=== PATIENT | male | born 1955 | race Caucasian/White ===

== ENCOUNTER → 2017-01-14 | Day surgery (SDC) | payer BC ==
[2016-12-29 11:50] VITALS: Ht 182.9 cm; Wt 90.9 kg
[2017-01-05 13:07] LABS: BASO % 0.3 %; BASO ABS # 0.03 K/uL (0-0.2); COMPLETE YES; EOS % 0.6 %; HEMATOCRIT 40.1 % (42-52); IG% 0.3 %; LYMPH % 16.9 %; LYMPH ABS # 1.54 K/uL (1.2-3.4); MEAN CELL VOLUME 94.4 fL (80-100); MEAN CORPUSCULAR HEMOGLOBIN 32.2 pg (25-34); MEAN CORPUSCULAR HGB CONC 34.2 g/dl (32-36); MEAN PLATELET VOLUME 9.1 fL (7.4-10.4); NEUT % 72.9 %; PLATELET COUNT 276 K/uL (130-400); RED BLOOD COUNT 4.25 M/uL (4.7-6.1); WHITE BLOOD COUNT 9.09 K/uL (4.8-10.8)
[2017-01-05 13:32] LABS: BUN/CREATININE RATIO 7.4 (10-20); CALCIUM 8.2 mg/dl (8.5-10.1); CREATININE 0.88 mg/dl (0.60-1.40); POTASSIUM 3.9 mmol/L (3.5-5.1)
[~2017-01-14] VITALS: Ht 182.9 cm; Wt 90.9 kg
[~2017-01-14] MED LIST: BUPIVACAINE/EPINEPHRINE 0.5% MPF 1:200,000 10 ML VIAL ONE; CEFAZOLIN 2000 MG/60 ML D5W IV SCH; CITA40TA12 PO; DEXAMETHASONE SOD INJ 4 MG/ML VIAL ONE; FENTANYL CITRATE INJ 50 MCG/1 ML 2 ML VIAL IV PRN; FENTANYL CITRATE INJ 50 MCG/1 ML 2 ML VIAL ONE; HYDR-5688 PO; HYDROCODONE/ACETAMOPHEN 5/325MG TAB PO PRN; KETOROLAC TROMETHAMINE 30 MG/ML VIAL IV. PRN; LACTATED RINGER'S 1000ML 1,000 ML IV PRN; LACTATED RINGER'S 1000ML 1,000 ML IV SCH; LIDOCAINE HCL 2% 2 ML VIAL (20MG/ML) ONE; MIDAZOLAM HCL 1 MG/ML 2ML VIAL ONE; ONDANSETRON INJ 2 MG/ML 2 ML VIAL IV PRN; ONDANSETRON INJ 2 MG/ML 2 ML VIAL ONE; PROPOFOL IV EMULSION 10 MG/ML 20 ML VIAL IV ONE; RISP0.5T3 PO; SODIUM CHLORIDE 0.9% 1000ML 1,000 ML IV SCH
--- NOTE | 2017-01-14 06:53 | History & Physical Bridge Note ---
H&P Re-Evaluation Bridge Note: I have examined the patient, reviewed the History & Physical and in the interval since the performance of the History & Physical I have noted the following changes of clinical significance: No changes noted
--- NOTE | 2017-01-14 07:58 | [facility] Operative Report ---
Operative Report Operative Date Jan 14, 2017. Pre-Operative Diagnosis Umbilical Hernia Post-Operative Diagnosis umbilical hernia Procedure(s) Performed open umbilical hernia repair. no mesh. Surgeon Dr. Romano Pharmacy Manager Surgeon(s) Bob Fields PA-C Estimated Blood Loss 5 ml Findings 1 cm umbilical hernia with omental incarceration. Specimens None Anesthesia LMA Disposition Recovery Room / PACU I attest to the content of the Intraoperative Record and any orders documented therein. Any exceptions are noted below.
--- NOTE | 2017-01-14 08:08 | Discharge Instructions-SurgCtr ---
Discharge Instructions Date of Service Jan 14, 2017. Visit Reason for Visit: Umbilical Hernia Discharge Discharge Diagnosis / Problem: Umbilical Hernia Discharge Goals Goal(s): Decrease discomfort, Improve function Activity Recommendations Activity Limitations: as noted below Lifting Limitations: no more than 10 pounds Exercise/Sports Limitations: until after follow-up appointment May Resume Sexual Activity: after follow-up appointment Shower/Bathe: tomorrow Anesthesia . Post Anesthesia Instructions: If you have had General Anesthesia or IV Sedation: * Do not drive today. * Resume driving when surgeon permits. * Do not make important decisions or sign legal documents today. * Call surgeon for: 1. Temperature elevations greater than 101 degrees F. 2. Uncontrollable pain. 3. Excessive bleeding. 4. Persistent nausea and vomiting. 5. Medication intolerance (nausea, vomiting or rash). * For nausea and vomiting use only clear liquids such as: tea, soda, bouillon until nausea subsides, then gradually increase diet as tolerated. * If you have any concerns or questions, call your surgeon's office. If physician is unavailable and it is an emergency, call 911 or go to the nearest emergency room. . Instructions / Follow-Up Instructions / Follow-Up Please follow-up with Dr. Romano in the office in 1-2 weeks. Please call the office at [phone] to make an appointment if you do not have one already. Our office is located at [address] [place] [address], [place] [address]. Please call our office at [phone] with any questions or concerns. Diet Recommendations Home Diet: no limitations, resume previous diet Procedures Procedures Performed: Umbilical Hernia Open Repair Pending Studies Studies pending at discharge: no Medical Emergencies . Who to Call and When: Medical Emergencies: If at any time you feel your situation is an emergency, please call 911 immediately. . Non-Emergent Contact Non-Emergency issues call your: Primary Care Provider, Surgeon Call Non-Emergent contact if: temperature is above 101.5, your pain is not controlled, wound has increased drainage, wound has increased redness . . "Provider Documentation" section prepared by Carolyn Fields. . [place] Drug Monitoring Program Search Results: patient reviewed within database, no issues identified
--- NOTE | 2017-01-14 08:24 | OPERATIVE REPORT ---
DATE OF OPERATION: 01/14/2017 PREOPERATIVE DIAGNOSIS: Symptomatic umbilical hernia. POSTOPERATIVE DIAGNOSIS: Umbilical hernia with omental incarceration. PROCEDURE: Open umbilical hernia repair without mesh. SURGEON: Dr. Romano. INFORMATION TECHNOLOGY TEACHER: Carolyn Fields PA-C. ESTIMATED BLOOD LOSS: Approximately 5 mL. COMPLICATIONS: No immediate. ANESTHESIA: General with laryngeal mask airway. OPERATION AND FINDINGS: OPERATIVE NOTE: After informed consent was obtained, the patient was taken to the operating suite and placed in supine position. After successful placement of laryngeal mask airway the abdomen was shaved and sterilely prepped and draped in usual fashion. Curvilinear infraumbilical incision was made with 15 blade scalpel and carried down through the soft tissue using electrocautery. We used a Nicole clamp to come around the umbilicus and took down the umbilical stalk with electrocautery. This revealed about 1 cm or so umbilical hernia with some omental incarceration. We were able to free up this omentum and dunk it back into the abdominal cavity, leaving a very discrete defect. Because of the small size, I opted to not use mesh. There were no adhesions to the undersurface so I simply took a 0 Ethibond suture and used interrupted [id number] sutures to close the defect primarily. The umbilical stalk was then reattached to the fascia using 0 Vicryl. The wound was thoroughly irrigated and closed using 3-0 Vicryl and 4-0 Monocryl for the skin. Marcaine was injected around the area for postoperative analgesia and skin glue used as a dressing. The patient was awakened, extubated, and transferred to recovery in stable condition. I attest to the content of the Intraoperative Record and any orders documented therein. Any exception s are noted below.
--- NOTE | 2017-01-14 08:27 | Anesthesia Progress Nt - [facility] ---
Anesthesia Post Op Note Date & Time Jan 14, 2017 at 08:27 Vital Signs Pain Intensity: 0 Vital Signs Past 12 Hours Date Time Temp Pulse Resp B/P (MAP) Pulse Ox O2 Delivery O2 Flow Rate FiO2 01/14/17 08:20 110/78 01/14/17 08:19 76 14 95 01/14/17 08:19 74 14 01/14/17 08:15 106/76 01/14/17 08:14 69 13 109/77 100 01/14/17 08:14 70 13 01/14/17 08:09 75 17 01/14/17 08:09 77 17 99 01/14/17 08:08 74 7 100 01/14/17 08:08 74 7 01/14/17 08:05 76 16 113/74 96 Mask 8 01/14/17 08:04 37.0 77 16 115/80 96 Mask 8 01/14/17 06:36 36.8 69 18 112/75 (87) 95 Room Air Notes Mental Status: alert / awake / arousable, participated in evaluation Pt Amnestic to Procedure: Yes Nausea / Vomiting: adequately controlled Pain: adequately controlled Airway Patency, RR, SpO2: stable & adequate BP & HR: stable & adequate Hydration State: stable & adequate Anesthetic Complications: no major complications apparent Pt doing well.
[2017-01-14 08:31] VITALS: TEMP 36.9
[2017-01-14 08:55] VITALS: BP 117/76; PULSE 60; O2SAT 96
== END | disposition home or self-care (01) ==
LOC: X.SURG 06:17
PROVIDERS: ATTEND Surgery
DX: K42.0 Umbilical hernia with obstruction, without gangrene (principal); K57.90 Diverticulosis of intestine, part unspecified, without perforation or abscess without bleeding; H91.90 Unspecified hearing loss, unspecified ear; F43.10 Post-traumatic stress disorder, unspecified; C83.30 Diffuse large B-cell lymphoma, unspecified site; Z80.3 Family history of malignant neoplasm of breast; Z82.3 Family history of stroke; Z87.891 Personal history of nicotine dependence

== ENCOUNTER 2023-09-27 05:03 | Observation (INO) ==
--- NOTE | 2023-09-22 10:48 | Anesthesiology Consultation ---
Date of Service September 22, 2023 Assessment & Plan (1) Encounter for pre-operative examination: - Infectious disease screening: Per assessment on 09/16/23: Did have previous fever which resolved per PAT RN interview. Patient currently has ongoing infection (reason for upcoming surgery). No current infectious disease symptoms. No noted recent Covid positive test result. At anesthesiologist discretion DOS if further testing needed preoperatively. - Infectious disease note (08/18/23): "Yes" medically cleared for surgery. " Cleared for surgery from ID perspective.. Please send intraop deep tissue/bone AFB cultures if possible." Chart Review Chart Review: Acceptable Risk for Surgery and Patient NOT seen in Pre Admission Testing History Surgery Operation Date: 09/27/23 07:00 Proposed Procedures p Right Elbow Incision and Drainage Olecranon Bursisit - Chetan Mello MD Height/Weight Height: 6 ft Weight: 78.018 kg Allergies Allergy/AdvReac Type Severity Reaction Status Date / Time No Known Drug Allergies Allergy Unknown Verified 09/22/23 10:41 Medications Home Medications Medication Instructions Recorded Confirmed Last Taken escitalopram oxalate 20 mg tablet 30 mg PO QAM 11/06/20 09/16/23 11/14/20 05:30 allopurinol 100 mg tablet 100 mg PO QAM 09/16/23 09/16/23 Unknown azithromycin 500 mg tablet 500 mg PO QAM 09/16/23 09/16/23 Unknown ethambutol 400 mg tablet 400 mg PO QAM 09/16/23 09/16/23 Unknown rifampin 300 mg capsule 600 mg PO QAM 09/16/23 09/16/23 Unknown Past Medical History Medical History Anxiety Infection Right elbow, "slow growth bacterium", on current abx Follows with ID (Dr. Bird, [facility]) Non-Hodgkin lymphoma (~2005) Hx chemo, currently "in remission" Past Surgical History Surgical History H/O detached retina repair (2006) History of colonoscopy History of prostate surgery (2020) no cancer, just laser treatment, PSH Hx of bilateral cataract extraction Hx of elbow surgery (11/17/20) right side, bursa sac drainage, Dr. Mello > slow growth bacterium Hx of umbilical hernia repair Social History Smoking Status: Former smoker Smoking cigarettes per day: 2 PPD Do You Dip or Chew Tobacco: No Smoking End Date: Quit 2005 Hx Alcohol Use: No Hx Substance Use: No substance use type: does not use Substance Use Type Other:: medical marijuana card> tinture > few times per week Lab Results Anesthesia Preop Results Results Anesthesia Widget: WBC 5.30 K/ul (4.8-10.8) 09/21/23 Hgb 13.7 g/dl (14.0-18.0) L 09/21/23 Hct 42.2 % (42.0-52.0) 09/21/23 Plt 266 K/uL (130-400) 09/21/23 Na 139 mmol/L (136-145) 09/21/23 K 4.0 mmol/L (3.5-5.1) 09/21/23 Cl 104 mmol/L (98-107) 09/21/23 CO2 30 mmol/L (21-32) 09/21/23 BUN 8 mg/dl (6-23) 09/21/23 Creat 1.37 mg/dl (0.6-1.4) 09/21/23 Glucose Level 78 mg/dl (70-99(Fasting)) 09/21/23 Testing Electrocardiogram Date: 08/01/23 NSR at 64bpm. "Normal ECG"
[2023-09-27] MEDS: LR 15ML/HR IV SCH (05:45)
[2023-09-27] MEDS ORDERED: MIDAZOLAM HCL 1 MG/ML 2ML VIAL ONE (06:35)
[2023-09-27] MEDS ORDERED: fentaNYL citrate PF 100 MCG/2 ML VIAL ONE ×2 (06:35→07:42)
[2023-09-27] MEDS ORDERED: ONDANSETRON INJ 2 MG/ML 2 ML VIAL ONE (06:37)
[2023-09-27] MEDS ORDERED: LIDOCAINE 2% 2 ML VIAL/AMP(20MG/ML) INFIL ONE (06:37)
[2023-09-27] MEDS ORDERED: PROPOFOL IV EMULSION 10 MG/ML 20 ML VIAL IV ONE (06:37)
--- NOTE | 2023-09-27 06:40 | History & Physical Bridge Note ---
Date of Service September 27, 2023 History & Physical Bridge Note I have examined the patient, reviewed the History & Physical and in the interval since the performance of the History & Physical I have noted the following changes of clinical significance: no changes noted
[2023-09-27] MEDS ORDERED: ONDANSETRON INJ 2 MG/ML 2 ML VIAL IV PRN ×2 (06:46→09:25)
[2023-09-27] MEDS ORDERED: ATROPINE SULFATE 0.1 MG/ML 10ML SYR IV PRN (06:46)
[2023-09-27] MEDS ORDERED: ePHEDrine sulfate 50 MG/ML AMP IV PRN (06:46)
[2023-09-27] MEDS ORDERED: PROMETHAZINE HCL 6.25 MG in SODIUM CHLORIDE 0.9% 50 ML IV PRN (06:46)
[2023-09-27] MEDS: ceFAZolin 2000MG 2,000 MG/15 ML SYR IV SCH (06:57)
[2023-09-27] MEDS ORDERED: ePHEDrine sulfate 50 MG/ML AMP ONE (07:20)
[2023-09-27] MEDS: BUPIVACAINE 0.5 % 5 MG/1 ML MPF 30ML VIAL ONE (07:29)
[2023-09-27] MEDS ORDERED: DEXAMETHASONE SOD INJ 4 MG/ML VIAL ONE (07:34)
[2023-09-27] MEDS: LIDOCAINE 1%/EPINEPHRINE 1:100,000 20 ML VIAL ONE (08:48)
--- NOTE | 2023-09-27 08:56 | Post Operative Brief Note ---
Immediate Post Op Note v1 Date of Surgery September 27, 2023 Pre & Post Diagnosis Operation Date: 09/27/23 07:00 Pre-Op Diagnosis: Infected Olecranon Bursitis, Right elbow Post-Op Diagnosis: Infected Olecranon Bursitis, Right elbow I identified the patient and participated in the time-out.: Yes Procedure Operation Date: 09/27/23 07:00 Actual Procedures p Right Elbow Incision and Drainage Olecranon Bursitis(Right) - Chetan Mello MD Surgeon Chetan Mello MD Auto Clocks Repairer Tom Rosas PA-C (No fellow avail) Estimated Blood Loss 12 Findings Consistent with Post-Op Diagnosis Fluids 1000 cc Specimens R Olecranon bursa gram stain, C&S x 2 R Olecranon bursa pathology R Olecranon bursa specimen for Micro R Olecranon bursa C&S for AFB R Olecranon bursa specimen for AFB Drains Hemovac Drain Anesthesia Type General Complications none
--- NOTE | 2023-09-27 08:58 | Operative Report ---
Post Operative Report Pre & Post Diagnosis Operation Date: 09/27/23 07:00 Pre-Op Diagnosis: Infected Olecranon Bursitis, Right elbow Post-Op Diagnosis: Infected Olecranon Bursitis, Right elbow I identified the patient and participated in the time-out.: Yes Procedure Operation Date: 09/27/23 07:00 Actual Procedures p Right Elbow Incision and Drainage Olecranon Bursitis(Right) - Chetan Mello MD Surgeon Chetan Mello MD Pharmacovigilance Scientist Tom Rosas PA-C (No fellow avail) Estimated Blood Loss 12 Findings See Below Large Olecranon bursae with scar tissue, clear fluid filled with soft tissue floaters. No obvious purulence. Fluids 1000 cc Specimens R Olecranon bursa gram stain, C&S x2 + AFB, surgical path, and specimen for Micro + AFB Drains HVAC Anesthesia Type General Complications none Indications The patient is a 68 year old male who previously underwent I&D of his right olecranon bursa 11/14/2020. This subsequently infected with M Kanasanii and failed to improve with aspiration and antibiotic treatment. The patient understands the risks of surgery, which include but are not limited to: bleeding, infection, re-operation, damage to nerves and arteries, continued pain and stiffness. The patient understands all of these instructions and explanations, all of their questions have been satisfactorily addressed. The patient has elected to proceed with surgery and the informed consent was signed. Description of Procedure The patient was taken to the Operating Room and placed in the supine position on the operating table. After adequate sedation was administered a multidisciplinary time-out was performed identifying my initials on the right upper limb as the correct and operative limb. 2 grams of Ancef were to be held until after cultures, unfortunately they were given prior to the incision. The patient has been continuing with his oral antibiotic regime as well. The right arm was prepped and draped in the standard orthopaedic sterile fashion. Using the previous posterior incision curves lateral around the tip of the patients olecranon was marked and extended approximately 1 cm both proximally and distally. The incision was injected with a 50:50 mixture of 1% Lidocaine plain and 0.5% Marcaine with epinephrine for a total of 10 cc. The incision was carried down to the bursa. The bursal mass was carefully excised in mostly a single unit. Once the bursal sac was entered, cultures were obtained. Some of the soft floaters and a portion of the bursal sac were removed for micro & AFB testing. The rest of the sac the size of a small orange was removed and sent to pathology for specimen. The skin, fascia, and olecranon tip were debrided with sharp dissection, rongeur, and Versajet removing any fibrinous material. The wound was copiously irrigated with over 6 L normal saline. The remaining soft tissue was well appearing health soft tissue. A Hemovac drain was placed. The skin was closed with 2-0 & 3-0 Prolene using vertical and horizontal mattress sutures. The incision was covered with Xeroform, 4x4's, ABD, sterile cast padding, and an DONTE. A sling was placed for comfort. The sponge and needle counts were correct. POST-OP INSTRUCTIONS: The patient will use pain medicine as needed. Sling for comfort. No heavy lifting. The patient will be admitted, labs checked as well as HVAC drainage. If drainage plan 50 cc overnight, drain may be removed. Will contact [facility] to determine if any changes need to be made to his antibiotics. He will follow- up in the office in 1 week. I attest to the content of the Intraoperative Record and any orders documented therein. Any exceptions are noted below.
[2023-09-27] MEDS: fentaNYL citrate PF 100 MCG/2 ML VIAL IV PRN (09:17)
--- NOTE | 2023-09-27 09:22 | Operative Report ---
Post Operative Report Pre & Post Diagnosis Operation Date: 09/27/23 07:00 Pre-Op Diagnosis: Infected Olecranon Bursitis, Right elbow Post-Op Diagnosis: Infected Olecranon Bursitis, Right elbow I identified the patient and participated in the time-out.: Yes Procedure Operation Date: 09/27/23 07:00 Actual Procedures p Right Elbow Incision and Drainage Olecranon Bursitis(Right) - Chetan Mello MD Surgeon Chetan Mello MD Process Improvement Specialist Tom Rosas PA-C (No fellow avail) Estimated Blood Loss 12 Findings Consistent with Post-Op Diagnosis Specimens olecranon bursa and fluid Drains hemovac Complications none Description of Procedure I was present during the entire case. I assisted with transfer, draping, retracting, wound closure, and dressing application. Patient left the OR in stable condition. Please refer to Dr. Mello's operative report for complete details. I attest to the content of the Intraoperative Record and any orders documented therein. Any exceptions are noted below.
[2023-09-27] MEDS ORDERED: diphenhydrAMINE Capsule 25 MG CAP PO PRN (09:25)
[2023-09-27] MEDS ORDERED: METOCLOPRAMIDE HCL INJ 5 MG/ML 2 ML VIAL IV PRN (09:25)
[2023-09-27] MEDS ORDERED: NALOXONE HCL 0.4 MG/1 ML VIAL/CARP IV PRN (09:25)
[2023-09-27] MEDS ORDERED: MAGNESIUM HYDROXIDE SUSP 30 ML UDC PO PRN (09:25)
[2023-09-27] MEDS ORDERED: bisacodyL 10 MG SUPP PR PRN (09:25)
--- OUTSIDE RECORDS SUMMARY | 2023-09-27 09:33 | External Medical Summary | Continuity of Care Document ---
Author Name Unknown Organization [id number] Address [address] [place] [id number] Care Team Providers Care Deli Clerk Name Role Phone Rashi Maciel Primary Care Physician [phone] Encounter [facility] [id number] Date(s): 09/21/23 - 09/21/23 [facility] [address] [id number] [facility] [address] [place] [id number] Encounter Diagnosis Pre-op exam(Discharge Diagnosis) - 09/21/23 Discharge Disposition: Home or Self Care Attending Physician: MD Funmilayo, Chetan A Allergies, Adverse Reactions, Alerts No Known Allergies Immunizations Given and Recorded Vaccine Date Status Refusal Reason SARS-CoV-2 (COVID-19) mRNA-1273 vaccine 1 10/27/20 Recorded SARS-CoV-2 (COVID-19) mRNA-1273 vaccine 2 09/29/20 Recorded influenza virus vaccine, inactivated 04/04/19 Give n influenza virus vaccine, inactivated 04/24/14 Give n influenza virus vaccine, inactivated 09/06/13 Give n tetanus/diphtheria/pertuss, acel (Tdap) 09/06/13 G luis 1Result Comment: 2021-01-07: Historical information-source unspecified 2Result Comment: 2021-01-07: Historical information-source unspecified Medications allopurinol 100 mg oral tablet TAKE 1 TABLET BY MOUTH EVERY DAY IN THE MORNING Start Date: 07/19/23 Status: Ordered azithromycin 500 mg oral tablet Start: 07/22/23 15:28:00 EST, 1 tab, PO, Daily, Disp# 28 tab, Refills: 1, Pharmacy: [facility] [id number] [facility] Start Date: 07/22/23 Stop Date: 09/16/23 Status: Ordered ethambutol 400 mg oral tablet Start: 07/22/23 15:24:00 EST, 1200, PO, Daily, Disp# 90 tab, Refills: 1, take three tablets once daily., Pharmacy: [facility] Start Date: 07/22/23 Stop Date: 09/20/23 Status: Ordered indomethacin 50 mg oral capsule TAKE 1 CAPSULE BY MOUTH 3 TIMES A DAY NEEDED FOR PAIN. WITH FOOD Start Date: 07/19/23 Status: Ordered Lexapro Start: 06/05/19 9:55:00 EST, See Instructions Start Date: 06/05/19 Status: Ordered LORazepam 0.5 mg oral tablet Start: 05/09/19 13:32:00 EDT, 1 tab, PO, Daily, PRN: as needed for anxiety Start Date: 05/09/19 Status: Ordered Prevnar 13 intramuscular suspension Start: 01/08/21 13:44:00 EDT, 0.5 mL, IM, ONCE, Disp# 0.5 mL, Pharmacy: [id number] Start Date: 01/08/21 Status: Ordered rifAMPin 300 mg oral capsule Start: 07/22/23 15:27:00 EST, 2 cap, PO, Daily, Disp# 60 cap, Refills: 1, Pharmacy: [facility] [id number] [facility] Start Date: 07/22/23 Stop Date: 09/20/23 Status: Ordered Shingrix intramuscular injection Start: 01/08/21 13:45:00 EDT, 0.5 mL, IM, ONCE, Disp# 1 each, Pharmacy: [facility] Start Date: 01/08/21 Status: Ordered Mental Status 09/21/23 Barriers to Learning one year None evide nt Mandatory Health Literacy Documentation Yes Health Literacy Communication Barriers N ever Primary Language Spanish Problem List Condition Confirmation Course Effective Dates Status H ealth Status Informant Diverticulosis of sigmoid colon Confirmed Active Hearing loss Confirmed Active Other hydronephrosis Confirmed Active Olecranon bursitis Confirmed Active Post traumatic stress disorder (PTSD) Confirmed Active Other retention of urine Confirmed Active S/P orthopedic surgery, follow-up exam Confirmed Active History of cigarette smoking 1 Confirmed Active Tobacco user Confirmed Active Weight disorder Confirmed Active 190 pack years Diagnosis Diagnosis Type Effective Dates Health Status Clini mark Service Informant Pre-op exam Discharge Diagnosis 09/21/23 Non-Specified Procedures Procedure Date Related Diagnosis Body Site Status History of elbow surgery 1 11/14/20 Completed Umbilical hernia 2 01/14/17 Comple anthony Colonoscopy 09/28/13 Completed Biopsy of lymph node Comp leted Cataracts, both eyes Comp leted Detached retina - R eye C ompleted 1right 2repair with omentl incarceration Vital Signs Most recent to oldest [Reference Range]: 1 Height 185 cm (09/21/23 2:59 PM) Patient Weight 80 kg (09/21/23 2:59 PM) Body Mass Index 23.37 kg/m2 (09/21/23 2:59 PM) Temperature [36.5-37.9 DegC] 36.6 DegC (09/21/23 2:59 PM) Heart Rate 78 bpm (09/21/23 2:59 PM) Blood Pressure 100/52mmHg (09/21/23 2:59 PM) Cuff Pulse Pressure 48 mmHg (09/21/23 2:59 PM) Social History Social History Type Response Tobacco Former smoker, Cigar ettes, 2 per day. 45 year(s). Started age 15 Years. Stopped age 50 Years. Smoking Status Never smoked cigaret stacie Sex Male History and physical note * ALAN Michel, Rachael: PERFORM Event Display: .HP Authored Date: [id number] Primary Care Provider MD Raheem, Rashi Santos Chief Complaint pre op R) elbow History of Present Illness Jeanne is a 68-year-old male here today for preoperative history and physical for right incision and drainage infected olecranon bursitis. He previously underwent right elbow olecranonbursectomy,11/12/2020. He did have repeat aspiration November 2020ofblood filledfluid and 40 cc of blood-tingedfluid was aspirated from the olecranon bursa on 06/13/2023 withpositiveAFB result. ID feltthat it was a contaminant and had a repeat aspiration on 07/05/2023. He was prescribed allopurinol, 400 mgethambutol 3 times daily, 300mgrifampin 2 pills a day,and Azithromycin [address] Casas. He is currently being followed by infectious disease. He states that nothing has changed with his elbow. He states that it is itchy at times and he knows that something is wrong. Hedoes not like taking the antibiotics and is eager to get off of those and have more answers after the surgery. He says thathe had a bad coldlast week and had a fever of 103. He feels fatiguedand he occasionally gets pain in his shoulders and hipsthat he feels is started since he started taking the antibiotics. He denies any previous history of heart attack, blood clots or stroke. He denies any current fevers or chills Preliminary fluid analysis from 07/05/2023 aspiration was negative for urate crystals and AFB, and all otherculturesto date Fluid analysis from 06/13/2023 aspiration revealed monosodium urate crystals consistent with gout concern for AFB positive aspirate The AFB culture from 08/09/23 was positive for the Microbacterium KANASASII [1] Review of Systems DeniesChest pain, heart palpitations; DeniesShortness of breath, cough; DeniesHeadache or blurry vision; DeniesAbdominal pain, nausea, vomiting, diarrhea, or urinary symptoms Physical Exam Vitals & Measurements T:36.6C HR:78(Monitored) BP:100/52 SpO2:96% HT:185cm WT:80.000kg(Dosing) WT:80kg BMI:23.37 General: Pt is well nourished, seated on the exam table AA&O, in NAD, calm and cooperative during exam HENT: Nontraumatic, no gross deformity, hearing and vision grossly in-tact, PERRL Heart: +S1, +S2, RRR, no murmurs appreciated Lungs: CTABL, no wheezing appreciated Focusing on the patient'sRightupper extremity (elbow): 2+ radial pulse Sensation to light touch is intact distally Motor to the median, radial, ulnar, AIN, and PIN, as well as musculocutaneous nerves are intact Full elbow ROM: 0-140flexion Large sized, soft fluid filled area over olecranon bursa,not warm, slightly boggy Skin intact, no sign of infection. Previous posterior incision is well healed with no evidence of infection. Size in unchanged [2] Diagnostic Results Refer to above for fluid analysis results Assessment/Plan Pre-op exam Infected olecranon bursitis The risks and benefits of surgery as well as the post operative course was explained and discussed with the patient. Written consent obtained. The patient's past medical history, surgeries, social history, medication list, allergies and PDMP were reviewed and confirmed with the patient. Geronimo ained medical clearance 09/15. He also was cleared by infectious disease. Infectious disease would like intraoperativedeep tissue/bone culturesto be sent off forAFB cultures. We will hold antibiotics until after we get the cultures in the OR. Patient will likely stay a couple days in the hospitalfor those results and for IV antibiotics. Infectious disease will continue to follow.. EKGwas done in July that showed normal sinus rhythm p. CBC and BMP orders were placed, willcontinue to follow. We discussed postoperative pain medications includingoxycodone, tylenol,as well as icing and elevating to control pain. Hisoxycodone will be prescribed at discharge from the hospital. DVT prophylaxis -ASA 81mg BID x 3 weeks, ANTHONY stockings x 2 weeks. Additional medications -stool softener as needed to prevent constipation while on narcotics. The patient has been scheduled for post operative appointments. The patient was given a preoperative booklet and we reviewed the most pertinent things leading up to the surgery and the day of surgery; including any assisted devices pt may need, when/who to call for the surgery time, where to arrive the day of surgery, NPO after midnight, medications to hold, prepping the skin with CHG to prevent infection etc. All oftheir questions and concerns were answered today. They were instructed to call our office if they have any further questions or concerns. Problem List/Past Medical History Ongoing Diffuse large B-cell lymphoma Diverticulosis of sigmoid colon Hearing loss History of cigarette smoking Olecranon bursitis Other hydronephrosis Other retention of urine Post traumatic stress disorder (PTSD) S/P orthopedic surgery, follow-up exam Tobacco user Weight disorder Historical Community acquired pneumonia Cough Nasal congestion Procedure/Surgical History History of elbow surgery (11/14/2020)Umbilical hernia (01/14/2017)Colonoscopy (09/28/2013)Detached retina - R eyeCataracts, both eyesBiopsy of lymph node Medications allopurinol(allopurinol 100 mg oral tablet) azithromycin(azithromycin 500 mg oral tablet), 500 mg= 1 tab, PO, Daily, 1 refills escitalopram(Lexapro), See Instructions ethambutol(ethambutol 400 mg oral tablet), 1200, PO, Daily, 1 refills indomethacin(indomethacin 50 mg oral capsule) LORazepam(LORazepam 0.5 mg oral tablet), 0.5 mg= 1 tab, PO, Daily, PRN pneumococcal 13-valent conjugate vaccine(Prevnar 13 intramuscular suspension), 0.5 mL, IM, ONCE rifAMPin(rifAMPin 300 mg oral capsule), 600 mg= 2 cap, PO, Daily, 1 refills zoster vaccine, inactivated(Shingrix intramuscular injection), 0.5 mL, IM, ONCE Allergies NKA Social History Smoking Status Never smoked cigarettes Alcohol - Denies Alcohol Use Tobacco - Low Risk Use:Former smoker Type:Cigarettes Tobacco use per day:2 Number of years:45 Started at age:15Years Stopped at age:50Years Family History Breast cancer: Mother. Stroke: Father. Health Status Family Member(s) Immunizations Vaccine Date Status SARS-CoV-2 (COVID-19) mRNA-1273 vaccine 10/27/2020 Recorded Comments : 2021-01-07: Historical information-source unspecified SARS-CoV-2 (COVID-19) mRNA-1273 vaccine 09/29/2020 Recorded Comments : 2021-01-07: Historical information-source unspecified influenza virus vaccine, inactivated 04/04/2019 Given influenza virus vaccine, inactivated 04/24/2014 Given influenza virus vaccine, inactivated 09/06/2013 Given tetanus/diphtheria/pertuss, acel (Tdap) 09/06/2013 Given Recommendations Health Maintenance Pending(in the next year) OverDue Medicare Annual Wellness Visit due01/08/22and every 1year Adult Influenza Vaccine due01/21/23and every 1year Due Adult COVID-19 Vaccination due09/21/23Unknown Frequency Adult Social Determinants of Health Screening due09/21/23Unknown Frequency Adult Tdap/Td Vaccine due09/21/23Unknown Frequency Hepatitis C Screening due09/21/23One-time only Pneumococcal Vaccine Older Adults due09/21/23One-time only Shingles Vaccine due09/21/23One-time only Due In Future Colorectal Cancer Screening not due until09/26/23and every 10year Lipid Screening not due until04/05/24and every Satisfied(in the past 1 year) Satisfied Body Mass Index on09/21/23.Satisfied by LUANN Rodriguez, Asia Mcdaniel [1]Chetan Mello; Angel Pittman 08/11/2023 09:32 EST [2]Chetan Mello; Angel Pittman 08/11/2023 09:32 EST Electronic Signature on File Electronically Reviewed/Signed by: Rachael Michel PA-C Author Signature Dt/Tm:09/21/2023 04:55 PM Physician Supervisor Special Effects, Dept. of [facility] - [address], [address] [place] [address] Electronically Reviewed/Signed by: Chetan Mello MD Cosigner Signature Dt/Tm: 09/22/2023 07:38 PM [facility] Bone Process Operator Department of [facility]opa[facility]ics and [facility] [address], [place] [address] Patient Care team information Care Team Personnel Name: David Thacker Kimberly Position: Pharmacist BCMA Member Role: Pharmacy - Lifetime Address: Address: [address] [address] Name: MD Raheem, Rashi Santos Position: Referring DIRECT Member Role: Primary Care Provider Address: Address: [facility] [address] [address] Care Team Related Persons Name: MADIHA ENCISO Address: home [address] [facility], [place] [id number]
[2023-09-27] MEDS: HYDROmorphone INJ 1 MG/ML SYRINGE IV PRN (09:37)
[2023-09-27] MEDS: oxyCODONE HCL IR 5 MG TAB (IMMEDIATE RELEASE) ONE (11:11)
[2023-09-27] MEDS: HYDROmorphone INJ 0.5 MG/0.5 ML SYR IV PRN (13:12)
--- NOTE | 2023-09-27 13:18 | Anesthesiology Progress Note ---
Date of Service September 27, 2023 Anesthesia Post Procedure Vital Signs Vital Signs: Temp Pulse Pulse Resp BP Pulse Ox O2 Del Method 09/27/23 12:30 67 15 106/65 95 Nasal Cannula 09/27/23 12:00 36.2 C L 70 17 102/65 97 Nasal Cannula 09/27/23 11:30 67 18 111/67 94 Nasal Cannula 09/27/23 11:15 70 17 111/65 98 Nasal Cannula 09/27/23 11:00 71 18 116/58 L 95 Nasal Cannula 09/27/23 10:45 78 21 100/62 97 Nasal Cannula 09/27/23 10:30 36.8 C 70 14 109/66 97 Nasal Cannula 09/27/23 10:15 68 18 111/66 97 Nasal Cannula 09/27/23 10:05 65 13 115/63 97 Nasal Cannula 09/27/23 09:55 71 18 123/70 97 Nasal Cannula 09/27/23 09:45 68 16 115/69 97 Nasal Cannula 09/27/23 09:35 67 17 121/71 99 Oxymask 09/27/23 09:25 69 21 120/71 98 Oxymask 09/27/23 09:15 36 C L 74 12 127/71 98 Oxymask 09/27/23 05:28 36.8 C 76 20 129/78 97 Room Air O2 Flow Rate 09/27/23 12:30 2 09/27/23 12:00 2 09/27/23 11:30 2 09/27/23 11:15 2 09/27/23 11:00 2 09/27/23 10:45 2 09/27/23 10:30 2 09/27/23 10:15 2 09/27/23 10:05 2 09/27/23 09:55 2 09/27/23 09:45 2 09/27/23 09:35 3 09/27/23 09:25 4 09/27/23 09:15 6 09/27/23 05:28 Pain Intensity Right Elbow: Pain Intensity: 6 Transfer of Care Handoff Completed per policy Notes Mental Status: alert / awake / arousable and participated in evaluation Patient Amnestic to Procedure: Yes Nausea / Vomiting: adequately controlled Pain: adequately controlled Airway Patency, RR, SpO2: stable & adequate BP & HR: stable & adequate Hydration State: stable & adequate Anesthetic Complications: no major complications apparent and Pt Satisfied with anesthetic care
--- NOTE | 2023-09-27 14:28 | Orthopedic Progress Note ---
Date of Service September 27, 2023 Assessment & Plan (1) Infection of right olecranon bursa: Plan: POD #0 s/p I&D R infected Olecranon bursa, doing as well as expected. Resume diet. WBAT. No heavy lifting RUE OOB to chair. Continue pain control. Check labs tomorrow. Will discuss antibiotic treatment and adjust per ID. PT/OT. Sling for comfort If HVAC drain output less than 50 cc overnight, may need to strain. D/C planning. Present on Admission?: Yes Admission and Anticipated Discharge Date Admission Date: September 27, 2023 Subjective No complaints Physical Exam Physical Exam: RUE: sensation to light touch intact. Motor to: median, radial, ulnar intact. BCR < 2sec. Dressing clean, dry, intact. Results & Data Vital Signs (Past 12 Hours) Vital Signs Temp Pulse Pulse Resp BP Pulse Ox O2 Del Method 09/27/23 13:30 36.2 C L 71 20 110/65 95 Room Air 09/27/23 12:30 67 15 106/65 95 Nasal Cannula 09/27/23 12:00 36.2 C L 70 17 102/65 97 Nasal Cannula 09/27/23 11:30 67 18 111/67 94 Nasal Cannula 09/27/23 11:15 70 17 111/65 98 Nasal Cannula 09/27/23 11:00 71 18 116/58 L 95 Nasal Cannula 09/27/23 10:45 78 21 100/62 97 Nasal Cannula 09/27/23 10:30 36.8 C 70 14 109/66 97 Nasal Cannula 09/27/23 10:15 68 18 111/66 97 Nasal Cannula 09/27/23 10:05 65 13 115/63 97 Nasal Cannula 09/27/23 09:55 71 18 123/70 97 Nasal Cannula 09/27/23 09:45 68 16 115/69 97 Nasal Cannula 09/27/23 09:35 67 17 121/71 99 Oxymask 09/27/23 09:25 69 21 120/71 98 Oxymask 09/27/23 09:15 36 C L 74 12 127/71 98 Oxymask 09/27/23 05:28 36.8 C 76 20 129/78 97 Room Air O2 Flow Rate 09/27/23 13:30 09/27/23 12:30 2 09/27/23 12:00 2 09/27/23 11:30 2 09/27/23 11:15 2 09/27/23 11:00 2 09/27/23 10:45 2 09/27/23 10:30 2 09/27/23 10:15 2 09/27/23 10:05 2 09/27/23 09:55 2 09/27/23 09:45 2 09/27/23 09:35 3 09/27/23 09:25 4 09/27/23 09:15 6 09/27/23 05:28
[2023-09-27] MEDS: SODIUM CHLORIDE 0.9% 1,000 ML IV SCH (14:41)
[2023-09-27] MEDS: ACETAMINOPHEN 500 MG TAB PO SCH (14:41)
[2023-09-27] MEDS: rifAMPin 300 MG CAPSULE PO SCH (16:27)
[2023-09-27] MEDS: oxyCODONE HCL IR 5 MG TAB (IMMEDIATE RELEASE) PO PRN (16:27)
[2023-09-27] MEDS: AZITHROMYCIN 250 MG TAB PO SCH (16:27)
[2023-09-27] MEDS: DOCUSATE SODIUM 100 MG CAP PO SCH (20:23)
[2023-09-27] MEDS: SENNA 8.6 MG TAB PO SCH (20:24)
[2023-09-28 06:39] LABS: Hematocrit (blood only) 37.9 % (42.0-52.0); Hemoglobin 12.7 g/dl (14.0-18.0); Mean Corpuscular Hemoglobin 31.6 pg (25.0-34.0); Mean Corpuscular Hgb Conc 33.5 g/dL (32.0-36.0); Mean Corpuscular Volume 94.3 fL (80.0-100.0); Mean Platelet Volume 8.9 fL (9.4-12.4); Platelet Count 305 K/uL (130-400); RDW Coefficient of Variation 12.8 % (11.5-14.5); RDW Standard Deviation 44.4 fL (36.4-46.3); Red Blood Count 4.02 M/uL (4.70-6.10)
[2023-09-28 07:01] LABS: BUN Creatinine Ratio 10.6 (10-20); Calcium 8.2 mg/dl (8.6-10.3); Est GFR (Non-African American) 88.9 ml/min; Potassium 4.4 mmol/L (3.5-5.1)
--- NOTE | 2023-09-28 08:32 | Orthopedic Progress Note ---
Date of Service September 28, 2023 Assessment & Plan (1) Infection of right olecranon bursa: Plan: POD #1 s/p I&D R infected Olecranon bursa, doing as well as expected. Resume diet. WBAT. No heavy lifting RUE RICE Avoid direct contact to elbow. OOB to chair. Continue pain control. Check sensitivities later today, if no new results will discharge home. Have discussed antibiotic treatment with ID and tentatively keep regiment the same, will adjust per ID. PT/OT. Sling for comfort D/C HVAC drain as output was 45 cc total, 09/28/23. D/C planning F/U in the office next week. Admission and Anticipated Discharge Date Admission Date: September 27, 2023 Subjective Some elbow/shoulder pain Physical Exam Physical Exam: RUE: sensation to light touch intact. Motor to: median, radial, ulnar, AIN, PIN, musculocutaneous nerves intact. BCR < 2sec. Dressing clean, dry, intact. Normal motion shoulder forward flexion. Results & Data Vital Signs (Past 12 Hours) Vital Signs Temp Pulse Pulse Resp BP Pulse Ox O2 Del Method 09/28/23 07:38 Room Air 09/28/23 07:34 36.8 C 67 16 125/68 96 Room Air 09/28/23 04:08 36.4 C L 64 16 113/72 96 Room Air 09/28/23 00:38 36.6 C 63 16 118/68 94 Room Air Laboratory Results 09/28/23 09/27/23 09/27/23 Range/Units 05:46 Unknown Unknown WBC 7.20 (4.8-10.8) K/ul RBC 4.02 L (4.70-6.10) M/uL Hgb 12.7 L (14.0-18.0) g/dl Hct 37.9 L (42.0-52.0) % MCV 94.3 (80.0-100.0) fL MCH 31.6 (25.0-34.0) pg MCHC 33.5 (32.0-36.0) g/dL RDW Std Deviation 44.4 (36.4-46.3) fL RDW Coeff of Natanael 12.8 (11.5-14.5) % Plt Count 305 (130-400) K/uL MPV 8.9 L (9.4-12.4) fL Sodium 141 (136-145) mmol/L Potassium 4.4 (3.5-5.1) mmol/L Chloride 107 (98-107) mmol/L Carbon Dioxide 31 (21-32) mmol/L Anion Gap 3 (3-11) BUN 9 (6-23) mg/dl Creatinine 0.85 (0.6-1.4) mg/dl Est Cr Clr Drug Dosing 90.0 ml/min Est GFR ( Amer) 103.0 ml/min Est GFR (Non-Af Amer) 88.9 ml/min BUN/Creatinine Ratio 10.6 (10-20) Glucose 93 (70-99(Fasting)) mg/dl Calcium 8.2 L (8.6-10.3) mg/dl Miscellaneous [place] [address] / Director: Terrance Maldonado M.D. Clinical Laboratory Report Name: JEANNE ENCISO Acct: [id number] Status: ADM IN : 1955 [facility] Date: 09/27/23 Age: 68 Sex: M Dis Date: Loc: Medical/Surgical/Ortho [address] [place] [address]/Bed: N376-2 Spec: [id number] Collected: 09/27/23-UNK Received: 09/27/[address]: Chetan Mello MD Source: Elbow,Right OV Order: Ordered: Aer/Justyna Cult/Sm Comments: Comment #3. Olecranon bursa, right elbow Procedure Result Verified Site Gram Stain Final 09/27/23 Gram Stain Result Few WBCs Seen No Organisms Seen Aero/Justyna Cult PENDING Source: Elbow,Right OV Order: Ordered: Aer/Justyna Cult/Sm Comments: Comment #2. Olecranon Bursa Fluid, Right elbow Procedure Result Verified Site Gram Stain Final 09/27/23 Gram Stain Result Many WBCs Seen No Organisms Seen Aero/Justyna Cult PENDING Source: Elbow,Right OV Order: Ordered: Aer/Justyna Cult/Sm Comments: Comment 1. Olecranon bursa, fluid Procedure Result Verified Site Gram Stain Final 09/27/23 Gram Stain Result Many WBCs Seen No Organisms Seen Aero/Justyna Cult PENDING Ordered: AFB Cult/Smr Comments: Comment #3. Olecranon bursa, right elbow Procedure Result Verified Site AFB Smear Final 09/28/23 AFB Smear Results No Acid-Fast Bacilli Seen AFB Culture PENDING Diagnostic Findings Case #: [id number] Collected: 11/14/20 Received: 11/14/20 FINAL DIAGNOSIS Soft tissue, right elbow, "olecranon bursa" (olecranon bursa excision): - A focally inflamed bursal sac containing abundant fibrin is seen. - No tumor seen. at 1542. Clinical History Olecranon bursitis right elbow. Procedure performed: Olecranon bursa excision. Gross Description RIGHT ELBOW OLECRANON BURSA The specimen is received in a container labeled right elbow olecranon bursa with the patient name. The specimen consists of multiple irregular fragments of yellow, yancey and dull juarez, soft to rubbery tissue. The fragments range from 0.6 x 0.5 x 0.5 cm to 6.8 x 5 x 4.5 cm. The largest fragment is saccular and on sectioning contains a yellowish, largely watery fluid. The remainder of the space is filled with pink to pale yellowish, somewhat papillary appearing tissue and delicate bridging trabeculae. A congressional representative section is submitted in a single cassette. Current Procedural Terminology [id number] Surgical Pathology Report Page 1 of 1
[2023-09-28] MEDS: ASPIRIN 81 MG ECTAB PO SCH (08:41)
[2023-09-28] MEDS: MULTIVITAMIN TAB PO SCH (08:41)
[2023-09-28] MEDS: ETHAMBUTOL HCL 400 MG TAB PO SCH (08:41)
[2023-09-28] MEDS: allopurinoL 100 MG TAB PO SCH (08:41)
[2023-09-28] MEDS: ESCITALOPRAM OXALATE 10 MG TAB PO SCH (08:41)
--- NOTE | 2023-09-28 11:06 | Discharge Summary ---
Date of Service September 28, 2023 Admission HPI Per Admitting Provider History of Present Illness González is a 68-year-old male here today for preoperative history and physical for right incision and drainage infected olecranon bursitis. He previously underwent right elbow olecranon bursectomy, 11/12/2020. He did have repeat aspiration November 2020 of blood filled fluid and 40 cc of blood-tinged fluid was aspirated from the olecranon bursa on 06/13/2023 with positive AFB result. ID felt that it was a contaminant and had a repeat aspiration on 07/05/2023. He was prescribed allopurinol, 400 mg ethambutol 3 times daily, 300mg rifampin 2 pills a day , and Azithromycin [address] Casas. He is currently being followed by infectious disease. He states that nothing has changed with his elbow. He states that it is itchy at times and he knows that something is wrong. He does not like taking the antibiotics and is eager to get off of those and have more answers after the surgery. He says that he had a bad cold last week and had a fever of 103. He feels fatigued and he occasionally gets pain in his shoulders and hips that he feels is started since he started taking the antibiotics. He denies any previous history of heart attack, blood clots or stroke. He denies any current fevers or chills Preliminary fluid analysis from 07/05/2023 aspiration was negative for urate crystals and AFB, and all other cultures to date Fluid analysis from 06/13/2023 aspiration revealed monosodium urate crystals consistent with gout concern for AFB positive aspirate The AFB culture from 08/09/23 was positive for the Microbacterium KANASASII [1] Admission Exam Per Admitting Provider Physical Exam Vitals & Measurements T: 36.6 C HR: 78 (Monitored) BP: 100/52 SpO2: 96% HT: 185 cm WT: 80.000 kg (Dosing) WT: 80 kg BMI: 23.37 General: Pt is well nourished, seated on the exam table AA&O, in NAD, calm and cooperative during exam HENT: Nontraumatic, no gross deformity, hearing and vision grossly in-tact, PERRL Heart: +S1, +S2, RRR, no murmurs appreciated Lungs: CTABL, no wheezing appreciated Focusing on the patient's Right upper extremity (elbow): 2+ radial pulse Sensation to light touch is intact distally Motor to the median, radial, ulnar, AIN, and PIN, as well as musculocutaneous nerves are intact Full elbow ROM: 0-140 flexion Large sized, soft fluid filled area over olecranon bursa, not warm, slightly boggy Skin intact, no sign of infection. Previous posterior incision is well healed with no evidence of infection. Size in unchanged [2] Principal Diagnosis Infected Right Olecranon bursitis Discharge Exam RUE: sensation to light touch intact. Motor to: median, radial, ulnar, AIN, PIN, musculocutaneous nerves intact. BCR < 2sec. Dressing clean, dry, intact. Normal motion shoulder forward flexion. Discharge Data Allergies Allergy/AdvReac Type Severity Reaction Status Date / Time No Known Drug Allergies Allergy Unknown Verified 09/27/23 05:35 Procedures Performed Operation Date: 09/27/23 07:00 Actual Procedures p Right Elbow Incision and Drainage Olecranon Bursitis(Right) - Chetan Mello MD Ordered Studies 09/27/23 05:00 US - OR guided needle placemen Routine Hospital Course (1) Infection of right olecranon bursa: Patient had an uneventful overnight stay following irrigation debridement for a right infected all olecranon bursa. He states he is doing very well today. His pain is well-controlled with the p.o. pain medication. He states that he is following with Dr. Casas at [facility] and currently on 3 different antibiotics. Patient has a follow-up scheduled in our office with Rachael on October 03 at 10 AM. POD #1 s/p I&D R infected Olecranon bursa, doing as well as expected. Resume diet. WBAT. No heavy lifting RUE RICE Avoid direct contact to elbow. OOB to chair. Continue pain control. Check sensitivities later today, if no new results will discharge home. Have discussed antibiotic treatment with ID and tentatively keep regiment the same, will adjust per ID. PT/OT. Sling for comfort D/C HVAC drain as output was 45 cc total, 09/28/23. D/C planning F/U in the office next week. Total Time Total Time Spent Total Time Spent (In Minutes): 20 mins Discharge Plan Discharge Items Patient Disposition: Home - Self-Care Reason For Visit: Infected Olecranon Bursisit Discharge Diagnosis: Infected Right olecranon bursitis Activity: Per Instructions section Lifting: None Bathing: Keep incision dry and May shower/bathe in 3 days Sexual Activity: When tolerated Exercise/Sports: Wait until after follow-up appointment Driving/Machine Use: no driving until cleared by Dr. Mello Weightbearing: Right partial Weightbearing Comment: no lifting, pushing, or pulling with right upper extremity Non-emergency contact: Surgeon Call non-emergency contact if: your pain is worsening, your pain is concerning for you, your temperature is above 101.5, your wound has increased redness, your wound has increased drainage and your wound pain has increased Follow-up/Referrals: Rashi Maciel MD [Primary Care Provider] - Rachael Michel PA-C [Physician Sausage Canner] - 10/04/23 10:00 am Diet: Regular Addtl Attending Provider Instructions: Keep dressing in place use sling for comfort You may do gentle range of motion of the hand, wrist, elbow and shoulder NO lifting, pushing or pulling with the right arm until further notice Continue with your antibiotics as prescribed. Take a 81 mg Aspirin by mouth every day for 3 weeks to prevent a blood clot you may ice as needed to the elbow over the dressing x20 minutes Take the pain medication as prescribed if needed. You may take over the counter analgesics, Tylenol or ibuprofen as directed If you have any changes, concerns, or questions Please contact our office immediately at [phone] Keep your follow up appointment as scheduled (10/04/23 @ 10:00 AM with Rachael Michel PA-C). If you need to change the appointment or come sooner contact the office. Pending Studies at Discharge: Yes Stand-Alone Forms: My [employer], Smoking Cessation Medications and DC Order Prescriptions: New aspirin 81 mg Tablet,Delayed Release (Dr/Ec) 81 mg PO QAM 30 Days Qty: 30 0RF acetaminophen [Tylenol Extra Strength] 500 mg Tablet 1,000 mg PO Q8 30 Days Qty: 180 0RF oxycodone 5 mg Tablet 5 - 10 mg PO Q4H MDD Ongoing Tx; Max; 6 tabs daily PRN (Reason: post op pain control) Qty: 28 0RF Continued escitalopram oxalate 20 mg Tablet 30 mg PO QAM allopurinol 100 mg Tablet 100 mg PO QAM rifampin 300 mg Capsule 600 mg PO QAM ethambutol 400 mg Tablet 400 mg PO QAM azithromycin 500 mg Tablet 500 mg PO QAM Discharge Orders: Discharge Order (Routine); Ordered 09/28/23 Ordered By: Og Walsh Admission Data Admit Date/Time: 09/27/23 09:26 Attending Provider: Chetan Mello Admit Provider: Chetan Mello Primary Care Provider: Rashi Maciel
== END 2023-09-28 12:19 | disposition home or self-care (01) ==
LOC: ASU 05:03 → PACUINP 09:26 → INTOOBSV 09:26 → 3N 14:16
DX: Z85.72 Personal history of non-Hodgkin lymphomas; Z79.899 Other long term (current) drug therapy; M71.121 Other infective bursitis, right elbow; Z98.890 Other specified postprocedural states; Z87.891 Personal history of nicotine dependence